=== PATIENT | female | born 1940 | race Asian ===

== ENCOUNTER 2025-08-04 09:22 | Emergency (ER) | payer OTHER ==
[2025-08-04] MEDS ORDERED: SODIUM CHLORIDE 0.9% 100 ML ONE (10:58)
[2025-08-04] MEDS ORDERED: IOPAMIDOL 370 MG/ML 100 ML INFUS..BTL INJ ONE (10:59)
[2025-08-04 13:30] VITALS: PULSE 67; RESP 20; TEMP 97.7; O2SAT 97
== END 2025-08-04 14:23 | disposition other institution (70) ==
LOC: FSED 10:00
DX: R42 Dizziness and giddiness (principal); I63.9 Cerebral infarction, unspecified; I70.90 Unspecified atherosclerosis; E78.5 Hyperlipidemia, unspecified; K21.9 Gastro-esophageal reflux disease without esophagitis; R94.31 Abnormal electrocardiogram [ECG] [EKG]
CPT/HCPCS: 70496; 70498; 71046; 80048; 81003; 84484; 85025; 93005; 99283; J7050; Q9967